=== PATIENT | male | born 1955 | race Two or more races ===

== ENCOUNTER 2020-08-25 07:27 | Outpatient (CLI) | payer OTHER ==
[~2020-08-25 07:27] MED LIST: ALBUTEROL17 G1
== END 2020-08-25 07:30 | disposition home or self-care (01) ==
LOC: LAB 07:27
PROVIDERS: ATTEND Internal Medicine Endocrinology, Diabetes & Metabolism
DX: Z20.828 Contact with and (suspected) exposure to other viral communicable diseases (principal); Z20.822 Contact with and (suspected) exposure to COVID-19

== ENCOUNTER 2020-12-05 07:40 | Outpatient (CLI) | payer OTHER | END 2020-12-05 07:41 | disposition home or self-care (01) | LOC: LAB 07:40 | PROVIDERS: ATTEND Emergency Medicine Pediatric Emergency Medicine | DX: Z03.818 Encounter for observation for suspected exposure to other biological agents ruled out (principal) ==